=== PATIENT | male | born 1975 | race Caucasian/White ===

== ENCOUNTER 2024-03-11 16:27 | Inpatient (IN) | payer MEDICARE, SELFPAY ==
[2024-03-11] VITALS (36 sets, daily range): BP systolic 99–154; BP diastolic 68–118; PULSE 37–60; BMI 20.1
[2024-03-11 14:56] LABS: Glucose - Point of Care 178 mg/dl (70-99)
[2024-03-11] MEDS: ATROPINE 0.1 MG/ML SYRINGE 1 MG IV ×2 (15:05→17:10)
[2024-03-11] MEDS: AMIDATE 20 MG IV (15:06)
[2024-03-11] MEDS: ANECTINE 150 MG IV (15:06)
[2024-03-11 15:11] LABS: % Basophils 0.4 % (0-2); % Immature Granulocytes 0.2 % (0-0.5); % Lymphocytes 18.9 % (20.5-51.1); % Monocytes 7.8 % (1.7-9.3); % Neutrophils 70.7 % (42.2-75.2); Absolute Eosinophils 0.2 10^3/uL (0-0.7); Absolute Lymphocytes 2.1 10^3/uL (1.2-3.4); Absolute Monocytes 0.9 10^3/uL (0.1-0.6); Absolute Neutrophils 7.8 10^3/uL (1.4-6.5); Hematocrit 34.4 % (39.0-52.0); Hemoglobin 10.9 g/dL (13.0-18.0); Mean Corp Hgb Conc. 31.7 g/dL (33.0-37.0); Mean Corpuscular Hgb 27.1 pg (27.0-31.0); Mean Corpuscular Volume 85.6 fL (80.0-94.0); Mean Platelet Volume 9.7 fL (7.4-10.4); Nucleated Red Blood Cells % 0 % (-); Platelet Count 394 10^3/uL (130-400); Red Blood Cell Count 4.02 10^6/uL (4.70-6.10); Red Cell Dist. Width 14.4 % (11.5-14.5)
--- NOTE | 2024-03-11 15:18 | ED.GENMED ---
History of Present Illness
General
Chief Complaint: Overdose Unintentional
Source: patient and ambulance crew
Exam Limitations: clinical condition and altered mental status
Time Seen by Provider: 03/11/24 15:14
Nursing documentation reviewed up to this point in time: agreed with
History of Present Illness
History of Present Illness:
49-year-old male presents for evaluation he was found passed out at the [place] train station seated in a train seat EMS was called treated with 2 mg of nasal Narcan with minimal improvement of his symptoms presented bradycardic in the 30s agonal
respirations, saturations in the mid 90s
IV access was obtained given 2 mg of IV Narcan he was able to wake up enough to tell me that he was snorting dope, and lives in [place] he went back to sleep, given more Narcan without much relief at that time decision was made to protect his
airway via intubation
Prior to intubation was given atropine due to his heart rate in the 30s, intubated without difficulty by physician accountant assistant with my direct supervision
Past History
Social History
Drug: Narcotics
Review of Systems
Review of Systems
Other source history: ambulance crew
All Other Systems: Not applicable
Phy Exam
Physical Exam
Physical Exam:
Physical Exam
General: 49-year male agonal respirations minimally responsive
Neck: Pupils 2 mm and
Heart: Bradycardic
Lungs: agonal shallow respiration
Abdomen: Soft
Neuro: Minimally responsive, nonverbal does open his eyes to voice and deep stimulation
Skin: no rash
Psychiatric: Unable to assess
Extremities: No cyanosis
Course
Orders/Labs/Results
Orders:
Orders
03/11/24 14:48
Naloxone [Narcan] 2 mg .ROUTE .STK-MED ONE
03/11/24 14:59
Propofol 1,000,000 Mcg/100 ml [Diprivan] 1,000,000 mcg in 100 ml .ROUTE .STK-MED
03/11/24 Dinner
NPO
Allow oral meds: No
Allow clear liquids: No
NPO with Ice Chips: No
03/11/24 15:01
Electrocardiogram (*1) Urgent
Reason for Study: Other
Other Reason for Exam: Potential overdose
Bedside Glucose- Treatment ONCE
Cardiac Monitoring- Treatment ONCE
EKG- Treatment ONCE
IV Insert/Care/Rem.- Treatment PRN
Pulse Ox/spot Check [RESP] Urgent
Quantity: 1
03/11/24 15:03
Acetaminophen Urgent
Alcohol Urgent
Complete Blood Count/With Diff Urgent
Comprehensive Metabolic Panel Urgent
Creatine Phosphokinase Urgent
Comment: ADD ON
Magnesium Urgent
Comment: ADDON
Phosphorus Urgent
Comment: ADDON
Salicylate Urgent
Triglycerides Urgent
Comment: ADDON
03/11/24 15:04
Atropine Sulfate [Atropine 0.1 mg/ml Syringe] 1 mg .ROUTE .STK-MED ONE
03/11/24 15:15
CT Head W/o Iv Contrast Urgent
Comment:
Reason For Exam: confusion
CR Chest Portable - 1 View Urgent
Comment:
Reason For Exam: od
Reason Study Needs to be Portable: Unable to Transport
03/11/24 15:16
GI tube insertion- Treatment ONCE
03/11/24 15:17
Ventilator Initial Settings [RESP] Urgent
03/11/24 15:23
Atropine Sulfate [Atropine 0.1 mg/ml Syringe] 1 mg IV NOW STA
Etomidate [Amidate 20 mg] 20 mg IV NOW STA
Succinylcholine Chloride [Anectine] 150 mg IV NOW STA
03/11/24 15:25
ABG [Arterial Blood Gas] Urgent
%Oxygen/Room Air: 100
03/11/24 15:30
Propofol 1,000,000 Mcg/100 ml [Diprivan] 1,000,000 mcg in 100 ml IV PER PROTOCOL
Indication:: Deep Sedation
Begin Infusion:: Now
Goal:: RASS -3 to -5 or BIS < 60 or ventilator synchrony
Maximum dose in mcg/kg/min:: 50
Continue currently infusion dose and titrate:: Yes
Titration Instructions:: Titrate by 5-10 mcg/kg/min every 5 minutes until RASS -3 to -5 or
Titration Instructions:: BIS < 60 or ventilator synchrony is met.
Titration Instructions:: Administer analgesia bolus dose(s) & titrate analgesia prior to
Titration Instructions:: adjusting sedation.
Taper Instructions:: If RASS is at or below goal for 4 consecutive hours decrease infusion by
Taper Instructions:: 5-10 mcg/kg/min every 2 hours. Do not wean infusion to off if patient is
Taper Instructions:: receiving a continuous NMBA or has received bolus NMBA with the past 3 hrs
Over-sedation Instructions:: If BIS < 40 and synchronous with ventilator decrease infusion by
Over-sedation Instructions:: 5-10 mcg/kg/min every 2 hour until BIS = 40-60.
Notify provider:: immediately if patient exhibits signs/symptoms of propofol-related
Notify provider:: infusion syndrome.
Additional Instructions:: Patient MUST be mechanically ventilated and MUST receive analgesia.
03/11/24 15:31
Add On- LAB Urgent
Tests Added?: cpk
03/11/24 15:50
Drug Screen, Urine [Urine Drug Abuse Screen] Urgent
Date Specimen was Collected: 03/11/24
Time Specimen was Collected: 15:48
Fentanyl, Urine Urgent
03/11/24 16:12
Admit/Transfer Patient As Directed
Co-Sign Provider:
Level of Care: Inpatient admission
Assign to:: ICU
Physician / Group: htay
Diagnosis: Acute VDRF , Overdose, severe BEDSPRING ASSEMBLER depression and bradycardia
Reason for Hospitalization: Overdose with severe BEDSPRING ASSEMBLER depression and bradycardia
Acute VDRF
Expected length of stay greater than two midnights?: Yes
ELOS- Estimated Length of Stay in days: 3
I certify the patient meets the requirements for IP care: Yes
03/11/24 16:15
Code Status As Directed
Resuscitation Status: Full Code
03/11/24 17:21
0.9% Sodium Chloride 1000 ml [Nss] 1,000 ml IV 100 mls/hr
Bisacodyl [Dulcolax] 10 mg RECTAL [id number] PRN
Dextrose 50%-Water [Dextrose 50% Syringe] 12.5 grams IV [id number] PRN
Docusate W/Senna [Senokot-S] 1 tablet PO BIDPRN PRN
Glucagon [GlucaGen] 1 mg IM PRN PRN
Polyethylene Glycol Powder [Miralax] 17 grams PO DAILYPRN PRN
03/11/24 17:21
Bellman Driver Consult Routine
Consulting Provider: Juan Diego Shaikh
Was physician already notified: Yes
Reason for consult: severe BEDSPRING ASSEMBLER depression and bradycardia , Acute VDRF
Activity As Directed
Activity Level: With Assistance
Bedside Glucose Monitoring As Directed
Frequency: AC&HS
Additional Instructions:: Change to q6h if pt on TPN, tube feeding or not eating
Small bore feeding tube placement [Place Small Bore Feeding Tube-ICU only] Routine
Vital Signs As Directed
Frequency: Per unit guidelines
DX Deep Vein Thrombosis Video Routine
03/11/24 18:00
Enoxaparin Sodium [Lovenox] 40 mg SC QPM
03/12/24 06:00
Basic Metabolic Panel IN AM
Complete Blood Count/No Diff IN AM
Glycohemoglobin (HgbA1c) IN AM
03/12/24 08:00
Polyethylene Glycol Powder [Miralax] 17 grams TUBE DAILY
03/14/24 06:00
Triglycerides Q3D
Comment: every 72 hours while patient is on propofol
03/17/24 06:00
Triglycerides Q3D
Comment: every 72 hours while patient is on propofol
03/20/24 06:00
Triglycerides Q3D
Comment: every 72 hours while patient is on propofol
Abnormal Lab Results
03/11/24 03/11/24 03/11/24
14:54 15:03 15:25
WBC 11.0 H 10^3/uL
(4.8-10.8)
RBC 4.02 L 10^6/uL
(4.70-6.10)
Hgb 10.9 L g/dL
(13.0-18.0)
Hct 34.4 L %
(39.0-52.0)
MCHC 31.7 L g/dL
(33.0-37.0)
Absolute Neuts (auto) 7.8 H 10^3/uL
(1.4-6.5)
Absolute Monos (auto) 0.9 H 10^3/uL
(0.1-0.6)
Lymphocytes % 18.9 L %
(20.5-51.1)
pH 7.53 H
(7.35-7.45)
pCO2 29 L mmHg
(35-48)
pO2 213 H mmHg
(83-108)
ABG O2 Sat (Measured) 100.0 H %
(94-98)
Potassium 5.6 H mmol/L
(3.5-5.1)
Carbon Dioxide 21 L mmol/L
(22-30)
Glucose 172 H mg/dl
(70-99)
Salicylates < 1.0 L mg/dl
(2.0-20.0)
Urine Opiates Screen
Urine Fentanyl Screen
Acetaminophen < 10 L ug/ml
(10-30)
Ur Barbiturates Screen
U Benzodiazepines Scrn
Urine Cocaine Screen
U Marijuana (THC) Screen
POC Glucose 178 H mg/dl
(70-99)
03/11/24
15:50
WBC
RBC
Hgb
Hct
MCHC
Absolute Neuts (auto)
Absolute Monos (auto)
Lymphocytes %
pH
pCO2
pO2
ABG O2 Sat (Measured)
Potassium
Carbon Dioxide
Glucose
Salicylates
Urine Opiates Screen Positive H
(Negative)
Urine Fentanyl Screen Positive H
(Negative)
Acetaminophen
Ur Barbiturates Screen Positive H
(Negative)
U Benzodiazepines Scrn Positive H
(Negative)
Urine Cocaine Screen Positive H
(Negative)
U Marijuana (THC) Screen Positive H
(Negative)
POC Glucose
03/11/24 15:03
03/11/24 15:03
Vital Signs
Initial and Last Documented VS:
Initial Vital Signs
Pulse Resp BP Pulse Ox
68 28 129/68 100
03/11/24 14:55 03/11/24 14:55 03/11/24 14:55 03/11/24 14:55
Last Documented Vital Signs
Temp Pulse Resp BP Pulse Ox
97.6 F 51 12 148/105 100
03/11/24 18:08 03/11/24 17:39 03/11/24 17:39 03/11/24 17:39 03/11/24 17:57
Procedures
Intubations
Procedure completed by: shazia
Method of Intubation: glidescope
Tube size (cm): 7.5
Placement confirmed by: auscutation, CXR and capnography
Breath sounds after intubation: equal
Intubation complications: no complications
MDM/Problems Addressed
Differential Diagnosis Includes:
Narcotic overdose, alcohol sedative hypnotic CVA aspiration other
MDM/Problems Addressed:
Mental status change
*Radiology
Radiology exam reviewed: preliminary read by ED provider and radiology read reviewed
*Pulse Oximetry
Patient hypoxic: no
*EKG
Interpreted by ED Provider?: Yes
Interpretation: abnormal
Comparison EKG: no comparison EKG present
Heart Rate: 33
Rate: normal
Rhythm: sinus
Ischemia: no ischemia
*Research Chief Engineer Interpretation
Rate: normal
Interpretation: normal
Heart Rate: 34
Rhythm: sinus
*Critical Care Note
Total Time (30-74mins, 75-104mins- exclusive of procedures): 35
Patient Management
Social determinants of health affecting care: Substance abuse
Discussion with other providers: Hospitalist
Update Note
Update Note:
Update decision to intubate the patient
Rapid sequence premedicated with atropine first-pass success
CRITICAL CARE STATEMENT: A total of 32 minutes of critical care time was provided for this patient. This includes management of unstable vital signs, evaluation of the patient at bedside, reviewing the patient's pertinent medical records discussion
with EMS providers and patient's family in addition to discussion with consultants, review of old EKGs and review of pertinent medical records. This time with separate from time utilized to perform the aforementioned documented procedures
ED Attending Note
-
Portions of this chart may have been created with voice recognition software.� Occasional wrong word or��sound alike� substitutions may have occurred due to the inherent limitations of voice recognition software.
Discharge Plan
Departure
Patient Disposition: Admit
Date of Disposition: 03/11/24
Time of Disposition: 15:47
Admit to: ICU
Admit to doctor: Shiney
Presentation/result/management discussed w/ accepting MD/DO: Hospitalist
Condition: Serious
Covid-19: Not Applicable
Discharge Problem:
Overdose, VENTILATOR DEPENDENT RESPIRATOR FAILURE
Interventions
Interventions:
*Risk Screen - Suicide Last Done: 03/11/24 16:00
*General Assessment Last Done: 03/11/24 15:14
*Neglect/Abuse Screening Last Done: 03/11/24 16:00
ED- Fall Risk Assessment Last Done: 03/11/24 15:14
*ED COVID-19 Vaccine History Last Done: 03/11/24 15:12
*Nursing Disposition Last Done: 03/11/24 17:43
ED- Cardiac Assessment Last Done: 03/11/24 15:21
ED- Neurological Assessment Last Done: 03/11/24 15:21
ED-Psychological Assessment Last Done: 03/11/24 15:21
ED- Pulmonary Assessment Last Done: 03/11/24 15:10
Discharge Date and Time
Discharge Date/Time: 03/11/24 17:44
[2024-03-11] MEDS: DIPRIVAN 100 IV ×2 (15:20→20:15)
[2024-03-11 15:28] LABS: ALT (SGPT) 35 U/L (0-50); AST (SGOT) 28 U/L (17-59); Acetaminophen < 10 ug/ml (10-30); Albumin 4.5 g/dl (3.5-5.0); Alcohol None Detected; Alkaline Phosphatase 55 U/L (38-126); Blood Urea Nitrogen 13 mg/dl (9-20); Calcium 9.5 mg/dl (8.4-10.2); Carbon Dioxide 21 mmol/L (22-30); Chloride 107 mmol/L (98-107); Glucose 172 mg/dl (70-99); Potassium 5.6 mmol/L (3.5-5.1); Salicylate < 1.0 mg/dl (2.0-20.0); Sodium 138 mmol/L (135-145); Total Bilirubin 0.4 mg/dl (0.2-1.3); Total Protein 6.9 g/dl (6.3-8.2); eGFR > 60.00
--- NOTE | 2024-03-11 15:32 | PHANOTE ---
Addendum entered by Denia Lowry 03/11/24 15:46:
called contact pharmacy attached to patient pharmacy records concern patient have have life a facility since I only seen that pharmacy attach to long term orders. pharmacy gave list of medication but could go into details since his was discharge
from [facility], unsure if patient still goes there short or [facility].
Original Note:
med rec note- patient unable to answer question now, no family with him, no ecw but recent pharmacy fills only filled on 02/09/24-02/08/24 for short days supply 10 day for most of them.
--- NOTE | 2024-03-11 15:51 | HPS.HSE ---
Addendum entered and electronically signed by Casey Pedroza MD 03/11/24 17:15:
Consulted [facility] Card Dr Fields for intermittent SB despite intubation and Atropine
Original Note:
Family Physician
-
Family Physician: NOT KNOW UNKNOWN - PT DOES
Chief Complaint
-
Intubated when I saw the patient
History of Present Illness
I could not get any information from the patient is intubated
Information gathered by chart review and speaking with the ER staff.
HPI
49M OP Meds suggested PMHX include Bipolar disorder, HLD , GERD, BPH BiB EMS
- found [place] out [place]
- EMS arrived to the [facility]; Given 2 mg of nasal Narcan with minimal improvement of his symptoms
- EMS noted bradycardic in the 30s with agonal respirations, POx mid 90s
- At ER: repeat 2 mg of IV Narcan- able to wake up enough to tell ER attd that he was snorting dope, and lives in [place] he went back to sleep, given more Narcan without much relief at that time decision was made to protect his airway via
intubation by ER atd
Medical History
Past Medical History
Past Medical History: Reports GERD, Hypercholesterolemia, Psychiatric (Bipolar ) and Other (Substance abuse - snorting )
Additional Past Medical History:
Sz disorder ?
Past Surgical History: Reports Other (Intubated Not available )
Social History
Drug: Other (active substance abuse )
Family History
Family History: Not pertinent
Allergies / Home Medications
Allergies reflects when Allergies were last updated in [facility].
Home Medications with original date entered in [facility]
Allergy/Medication List:
Allergies
Allergy/AdvReac Type Severity Reaction Status Date / Time
No Allergy Information Allergy Unverified 03/11/24 15:12
Available
Home Medications
atorvastatin 10 mg tablet (Lipitor) 10 mg PO QPM 03/11/24
esomeprazole magnesium 40 mg capsule,delayed release (Nexium) 40 mg PO BID 03/11/24
levetiracetam 500 mg tablet (Keppra) 500 mg PO BID 03/11/24
lithium carbonate 300 mg tablet,extended release 300 mg PO DAILY 03/11/24
lithium carbonate 600 mg capsule 600 mg PO HS 03/11/24
quetiapine 200 mg tablet (Seroquel) 200 mg PO HS 03/11/24
quetiapine 25 mg tablet (Seroquel) 75 mg PO DAILY 03/11/24
sucralfate 1 gram tablet (Carafate) 1 g PO ACHS 03/11/24
tamsulosin 0.4 mg capsule (Flomax) 0.4 mg PO DAILY 03/11/24
Review of Systems
-
Unable to obtain full review of systems at this time due to: Patient Intubation
Physical Exam
Vital Signs
Vital Signs
Pulse Resp BP Pulse Ox
57 12 105/92 100
03/11/24 15:45 03/11/24 15:45 03/11/24 15:00 03/11/24 15:45
Physical Exam
General: Intubated
HEENT: NormoCephalic and Anicteric
Respiratory: Other (symmetric AE )
Cardiac: S1/S2 and Bradycardia
Breast: Deferred by me
GI: Soft, Non Tender, Non Distended and Normal Bowel Sounds
Rectal: Deferred by Provider
Genito-urinary: Deferred by me
Musculoskeletal: No Edema
Skin: Warm
Neuro: Other (intubated )
Laboratory Results
-
03/11/24 15:03
03/11/24 15:03
Laboratory Results
Total Bilirubin 0.4 mg/dl (0.2-1.3) 03/11/24 15:03
AST 28 U/L (17-59) 03/11/24 15:03
ALT 35 U/L (0-50) 03/11/24 15:03
Alkaline Phosphatase 55 U/L (38-126) 03/11/24 15:03
Data Reviewed
-
Diagnostic Radiology: Image Personally Visualized and interpreted
Lab Data: Labs Reviewed by me
Impression/Plan
-
Vital Signs
Pulse Resp BP Pulse Ox
57 12 105/92 100
03/11/24 15:45 03/11/24 15:45 03/11/24 15:00 03/11/24 15:45
Laboratory Tests
03/11/24 03/11/24
14:54 15:03
WBC 11.0 H
Hgb 10.9 L
Potassium 5.6 H
Carbon Dioxide 21 L
Creatinine 1.2
eGFR > 60.00
Creatine Kinase Pending
Salicylates < 1.0 L
Acetaminophen < 10 L
Alcohol, Quantitative None detected
POC Glucose 178 H
NO PRIOR HOSPIALIST admission:
ASSESSMENT & PLAN
Pending Rx reconciliation
Overdose with severe TIE CARRIER depression and bradycardia
Unable to sustain wakefullness despite 3 x2 g narcan to protect AW - Intubated at ER
Aute VDRF and sedated under Diprivan gtt
Sinus bardycardia - improved to 50s from 30s - s/p Atropine 1mg
Mildly hypotensive
- NEG ETOH, Unremarkable salicylates and Acetaminophen
- Pending UDS
- Pending ABG
- cont. Vent and supportive care
- Small bore NGT
- supportive care; IVF
- Hypoglycemic protocol
- IV PPI BID
- Assistant Product Manager consult
HX OP Meds suggested PMHX include Bipolar disorder, HLD , GERD, BPH
- pending Rx reconciliation
DVT Px: LMWH
Code: Full code
ICU
Total Critical Care Time___70__ minutes.
I was immediately available to the patient and staff. I personally examined, reviewed labs, diagnostic images/reports, interpretations, treatment plans, discussed patient care with other providers and family or caregivers (if patient is unable to
make decisions), entered orders as appropriate and documented the medical record.
[2024-03-11 15:59] LABS: Creatine Phosphokinase 59 U/L (55-170); Triglycerides 88 mg/dl (10-149)
[2024-03-11 16:11] LABS: Amphetamines Negative (Negative); Barbiturates Positive (Negative); Benzodiazepines Positive (Negative); Buprenorphine Negative (Negative); Cocaine Positive (Negative); Marijuana Positive (Negative); Methadone Negative (Negative); Methamphetamines Negative (Negative); Opiates Positive (Negative); Phencyclidine Negative (Negative)
[2024-03-11 16:12] LABS: Tricyclic Antidepressants Negative (Negative)
[2024-03-11 16:38] LABS: B.E. 2.1 mmol/L; HCO3 24.2 mmol/L (21-28); PCO2 29 mmHg (35-48); PO2 213 mmHg (83-108); pH 7.53 (7.35-7.45)
[2024-03-11 16:46] LABS: Fentanyl, Urine Positive (Negative)
[2024-03-11 18:06] LABS: Magnesium 2.2 mg/dl (1.6-2.3); Phosphorus 4.4 mg/dl (2.5-4.5)
[2024-03-11] MEDS: SUBLIMAZE 50 MCG IV ×4 (18:41→23:46)
[2024-03-11] MEDS: NSS 1000 IV (19:08)
[2024-03-11] MEDS: LOVENOX 40 MG SC (19:09)
--- NOTE | 2024-03-11 19:18 | PTCARENOTE ---
Received pt from ER into ICU rm 3370 @ 1730. Pt sedated/intubated on propofol gtt- see flow sheet to keep RASS (-3)-(-5.) +response to painful stimuli. Pupils 2mm/sluggish/perrla. SR on monitor. SpO2 100% on vent settings AC12/500/.40/+5. #7.5 ETT,
21 @ lip on R side. Suctioned for small amt of thick/white secretions. Auscultated coarse breath sounds throughout. OG tube in palce clamped. Previously straight cath'd in ER; BS/SC prn. #18 R wrist and #20 L wrist patent, dressing c/d/i.
Unable to obtain more peripheral access/venous draw. VAT aware and to bedside to place midline. Report given to nightshift RN.
[2024-03-11] MEDS: DOPamine 400 MG 250 IV (19:30)
[2024-03-11 19:56] LABS: INR 1.21; PT 15.1 Sec (11.4-14.6)
[2024-03-11 19:57] LABS: APTT 37.1 Sec (23.4-35.0)
[2024-03-11 20:02] LABS: Blood Urea Nitrogen 11 mg/dl (9-20); Calcium 9.2 mg/dl (8.4-10.2); Carbon Dioxide 21 mmol/L (22-30); Chloride 112 mmol/L (98-107); Estimated Creatinine Clearance 60 ml/min; Glucose 110 mg/dl (70-99); Potassium 3.7 mmol/L (3.5-5.1); Sodium 143 mmol/L (135-145); eGFR > 60.00
[2024-03-11] MEDS: SUBLIMAZE 100 IV (20:55)
--- NOTE | 2024-03-11 21:00 | PTCARENOTE ---
Received pt at 1900, intubated and sedated on propofol. Pt. agitated at times, CPOT >4, restless- PRN fentanyl given. Fentanyl gtt started as propofol max'd and pt. remained agitated. + gag/corneals, pupils 3mm/sluggish. Responsive to pain, no
commands followed. TSAI, purposeful movements. B/L wrist restraints in place. SB on tele, HR 37-42. TRASH MAN notified. Dopamine gtt started to maintain HR >40- see worklist. BP stable 100s/70s. + pulses. Ext cool. Temp 98. No edema. #7.5 ETT 22 center
lip. Tolerating A/C 12/500/+5/40%. Spo2 98-100%. Lungs coarse. Suctioned ETT for bloody tinged sputum. Mouth care provided. OG tube to LIWS, flushed as ordered. Hypoactive bowel sounds. Has not voided since ED. Bladder scan >690ml. TRASH MAN placed mario
order. 14F temp sensing mario inserted per protocol without issue. 750 ml clear yellow urine out. See I&O. R midline with dopamine gtt, R #18 with NSS @ 100ml/hr, prop and fentanyl gtts. Turning q2.
--- NOTE | 2024-03-11 21:29 | PTCARENOTE ---
Spoke with mother, Siena, on the phone (can be reached at cell number [phone]; number listed on chart is land line number no longer in use). Updated on patients condition. She OK'd pt. son (Markel Salguero, cell number [phone]) to be updated
on care also. Spoke with him and informed of condition.
[2024-03-11] MEDS: ATIVAN 2 MG IV (22:33)
--- NOTE | 2024-03-11 22:34 | PTCARENOTE ---
Pt awake, eyes open, tracking, following commands. Fighting ventilator and restraints. PRN ativan given with no effect. SPRINKLING SYSTEM INSTALLER at bedside. 5mg Versed ordered and given.
[2024-03-11] MEDS: VERSED 5 MG IV (22:39)
--- NOTE | 2024-03-11 23:54 | PTCARENOTE ---
Pt. reassessed. Very agitated with any form of care, fentanyl bolus given and gtt increased.
[2024-03-12] VITALS (39 sets, daily range): BP systolic 84–161; BP diastolic 58–111; PULSE 38–60; BMI 19.9
[2024-03-12] MEDS: SUBLIMAZE 50 MCG IV ×4 (00:18→06:44)
[2024-03-12] MEDS: DIPRIVAN 100 IV ×2 (00:21→05:45)
[2024-03-12] MEDS: VERSED 5 MG IV ×4 (00:33→07:16)
--- NOTE | 2024-03-12 01:48 | PTCARENOTE ---
Spiked temp 100.9. METAL ROASTER notified- cultures and lactic ordered and drawn. Ofirmev ordered.
[2024-03-12] MEDS: OFIRMEV 100 IV (01:58)
[2024-03-12] MEDS: ZOSYN 50 IV ×4 (01:59→20:42)
[2024-03-12 02:10] LABS: Lactic Acid 0.8 mmol/L (0.7-2.0)
[2024-03-12] MEDS: ATIVAN 2 MG IV (04:07)
[2024-03-12 04:20] LABS: Hematocrit 30.6 % (39.0-52.0); Hemoglobin 9.8 g/dL (13.0-18.0); Mean Corpuscular Hgb 27.1 pg (27.0-31.0); Mean Corpuscular Volume 84.8 fL (80.0-94.0); Mean Platelet Volume 9.6 fL (7.4-10.4); Platelet Count 359 10^3/uL (130-400); Red Blood Cell Count 3.61 10^6/uL (4.70-6.10); Red Cell Dist. Width 14.5 % (11.5-14.5); White Blood Cell Count 12.2 10^3/uL (4.8-10.8)
[2024-03-12 04:36] LABS: Blood Urea Nitrogen 10 mg/dl (9-20); Calcium 8.7 mg/dl (8.4-10.2); Carbon Dioxide 19 mmol/L (22-30); Chloride 112 mmol/L (98-107); Estimated Creatinine Clearance 66 ml/min; Glucose 113 mg/dl (70-99); Magnesium 1.7 mg/dl (1.6-2.3); Potassium 3.8 mmol/L (3.5-5.1); Sodium 143 mmol/L (135-145); eGFR > 60.00
[2024-03-12 04:47] LABS: B.E. -3.1 mmol/L; HCO3 20.9 mmol/L (21-28); O2 Saturation % 99.9 % (94-98); PCO2 33 mmHg (35-48); PO2 142 mmHg (83-108); pH 7.41 (7.35-7.45)
[2024-03-12] MEDS: SUBLIMAZE 100 IV (04:57)
[2024-03-12] MEDS: NSS 1000 IV (04:58)
[2024-03-12] MEDS: MAGNESIUM SULFATE 102 GRAMS IV (06:28)
--- NOTE | 2024-03-12 07:21 | PTCARENOTE ---
Pt. required extra doses versed and ativan, max'd on prop, fent titrated up overnight. Remains restless, agitated at times. INSULATION CUTTER AND FORMER aware. Many attempts to calm pt and redirect. Remains off dopamine gtt- HR 50s-60s. BP stable.
--- NOTE | 2024-03-12 07:58 | CON.INTV ---
Consultation
Consultation Request
Date/Time Consultation Requested: 03/12/2024-7 AM
Date/Time Consultation Performed: 03/12/2024-7:30 AM
Requesting Provider: Hospitalist
Performing Provider: Dr. Martinez
Reason for Consultation: Ventilator/critical care management
Medical History
-
Chief Complaint: Unresponsive
History of Present Illness:
49-year-old male with a history of bipolar disorder, polysubstance abuse [place] not responding to nasal Narcan requiring intubation mechanical ventilation-cut pressman consulted for ventilator/critical care
management 03/12/2024. Patient is much more alert on the ventilator, answering questions, moderate amount secretions-yellow and thick according to [employer] ADMINISTRATOR, no complaints of chest pain, abdominal pain or weakness, however, review of systems difficult as
patient is intubated and mechanically ventilated.
Past Medical History
Past Medical History: None (Polysubstance abuse. GERD. Hyperlipidemia. Bipolar.)
Social History
Tobacco: Other (Unknown)
Alcohol: None (X 9 years)
Drug: Narcotics and Other (Barbiturates and benzodiazepines)
Family History
Family History: Unable to Obtain
Allergies / Home Medications
Allergies
Allergy/AdvReac Type Severity Reaction Status Date / Time
No Allergy Information Allergy Unverified 03/11/24 15:12
Available
Home Medications
�Medication �Instructions �Recorded �Confirmed �Last Taken �Type
atorvastatin 10 mg tablet (Lipitor) 10 mg PO QPM 03/11/24 03/11/24 Unknown History
esomeprazole magnesium 40 mg 40 mg PO BID 03/11/24 Unknown History
capsule,delayed release (Nexium)
levetiracetam 500 mg tablet 500 mg PO BID 03/11/24 Unknown History
(Keppra)
lithium carbonate 300 mg 300 mg PO DAILY 03/11/24 Unknown History
tablet,extended release
lithium carbonate 600 mg capsule 600 mg PO HS 03/11/24 Unknown History
quetiapine 200 mg tablet (Seroquel) 200 mg PO HS 03/11/24 Unknown History
quetiapine 25 mg tablet (Seroquel) 75 mg PO DAILY 03/11/24 Unknown History
sucralfate 1 gram tablet (Carafate) 1 g PO ACHS 03/11/24 Unknown History
tamsulosin 0.4 mg capsule (Flomax) 0.4 mg PO DAILY 03/11/24 Unknown History
Review of Systems
-
Unable to Obtain full review of systems at this time due to: Patient Intubation
Vitals / Labs / Diagnostic Testing
Vital Signs
Temp Pulse Resp BP Pulse Ox
101.2 F H 71 20 124/81 100
03/12/24 02:40 03/12/24 07:15 03/12/24 07:15 03/12/24 06:31 03/12/24 07:15
Lab Data
03/12/24 03:53
03/12/24 03:53
Laboratory Results
03/11/24 03/11/24 03/12/24
15:25 19:27 04:37
PT 15.1 H
INR 1.21
APTT 37.1 H
pH 7.53 H 7.41
pCO2 29 L 33 L
pO2 213 H 142 H
HCO3 24.2 20.9 L
O2 Delivery Level
Diagnostic Testing:
Physical Exam
-
Exam:
Well-nourished and well-developed in no apparent distress
HEENT-atraumatic, normocephalic, oral tracheal intubation
Neck-supple, no JVD, no bruit
Heart-regular rate and rhythm-no murmurs, rubs or gallops
Chest-clear to auscultation, no wheezes, crackles
Back-no tenderness
Abdomen-soft, nontender, nondistended, no hepatosplenomegaly
Extremities-no cyanosis, clubbing, edema and good peripheral pulses
Integument-intact, no rashes, lesions or ecchymosis
Neurology-alert and oriented, nonfocal motor and sensory exam
Assessment
-
49-year-old male with a history of bipolar disorder, polysubstance abuse [place] responding to nasal Narcan requiring intubation mechanical ventilation-cut pressman consulted for ventilator/critical care
management 03/12/2024.
Opiate overdose with severe REVIEW RN depression
UDS positive opiates, fentanyl, barbiturates, benzodiazepines, cocaine, and marijuana
Respiratory failure due to REVIEW RN depression requiring intubation and mechanical ventilation
Intubated 03/11/2024
Extubated 03/12/2024
Sinus bradycardia
Hypotension
Leukocytosis
Aspiration pneumonia suspected-thick yellow mucus from ET tube
Qhslbh-[id number]-lqqeylmkxa 9.8
Metabolic acidosis
Mild hyperglycemia
Conditions present prior to admission:
Polysubstance abuse.
GERD.
Hyperlipidemia.
Bipolar.
Plan
Patient will be admitted to medical intensive care
Patient intubated mechanically ventilated
Spontaneous breathing trial-Hope to extubate-patient starting to wake up
Follow oxygen
Aspiration suspected
VAP prevention protocol
Check cultures
Check sputum culture
Empiric antibiotics
Follow radiographically
Trend WBCs and temperature
Etiology of drug widoxjuj-bxszvjeuggteu-llvchfh, fentanyl, barbiturates, benzodiazepines, cocaine and marijuana
Monitor for arrhythmias-monitor QTC, QRS, etc.
CT head summarized below
Neurochecks
For opiate overdose
Monitor for respiratory depression, contricted pupils,
Dextromethorphan - serotonin txicity
Fentanyl - amnestic, chest wall rigidity
Hydrocodone - often combined with acetaminophen
Loperamide - QRS and QT prolongation, wide complex tachy
Meperidine - seizure, serotonin toxicity
Methadone - very long acting, QT prolongation, Torsades
Oxycodone - often combined with acetaminophen, QT prolongation
Tramadol - seizure, serotonin toxicity
Naloxone- consider drip
Often Xylazine coadministered with Fentanyl
causes coma, apnea, bradycardia and hypotention, skin ulcerations
withdrawal irratibility, craving, anxiety, dysphoria, tachy, aches, htn
check levels
For potential benzodiazepine overdose
Monitor for sedation, airway protection, intubate if necessary, supportive care
Consider propylene glycol toxicity if parenteral diazepam or lorazepam was used
Flumazenil could be considered
With history of marijuana use there is a potential for 'synthetic marijuana'-also called 'K2' or 'Spice'
Does not show up on UDS
Monitor for agitation, seizures, and psychosis
Treat with benzodiazepines such as Ativan
Intravenous fluids
Psychiatric evaluation
DVT prophylaxis
GI prophylaxis if remains on ventilator with hypotension
Aspiration precautions
Early nutrition
Early mobilization
If able to be extubated and hemodynamically stable then transfer out of ICU-call pulmonary if respiratory issues arise
Critical care statement: A total of 55 minutes of critical care time was provided for this patient today. This includes management of unstable vital signs, evaluation of the patient at bedside, reviewing the patient's pertinent medical records
including radiographs, pressor management, ventilator management, microbiology, laboratory evaluations, and discussion with primary team and critical care nursing.
Diagnostic data:
Chest x-ray 03/11/2024-mild elevation left hemidiaphragm
CT head 03/11/2024-no evidence for intracranial disease
Data Reviewed
-
EKG: Report reviewed by me
Radiology: Report reviewed by me
CT Scan: Report reviewed by me
Labs: Labs reviewed by me
Critical Care Time (in minutes): 55
--- NOTE | 2024-03-12 08:45 | RESPNOTE ---
pt extubated to room air after successful SBT per Dr. Martinez.
--- NOTE | 2024-03-12 09:00 | PTCARENOTE ---
Received pt @ change of shift. Initiated SAT @ 0800; prop/fent gtts off- see flow sheet. RT to bedside and initiated CPAP wean @ 0800 8/.40/+5. Pt. very restless but tolerating wean; RT further changed settings to CPAP 5/.40/+5. [address] Persaud; verified no ABG required prior to extubation. Further orders received to extubate- RT extubated pt. @ 0845 to RA. SpO2 99% on RA, no s/s of resp distress. Pt. mentation intact; cooperative/appropriate. VSS post extubation.
Instructed on how to report care concerns and call jiménez w in reach. Bed alarm active.
[2024-03-12] MEDS: NSS (PRESERVATIVE FREE) 10 ML IV (09:08)
[2024-03-12] MEDS: PROTONIX IV 40 MG IV (09:09)
--- NOTE | 2024-03-12 10:07 | W.PN.HOSP.TC ---
Today's Communication/Plan
-
Extubate and monitor clinically
Continue with IV Zosyn and follow cultures
Case management consult for drug rehab placement
Assessment / Plan
Assessment / Plan
#Fever
-Does have extensive opiate history, presumed IVDU status
-After arrival he had 2 fevers near 101 �F, no obvious source of infection
-Chest x-ray was without any signs of infection, no urinalysis on arrival
-Does have a leukocytosis with WBC near 11 to 12 x 2
-Blood cultures were taken in the ED, started on IV Zosyn empirically
Plan
-Continue with IV Zosyn for now
-Trend CBC and temperature curve
-Follow blood culture results
#Opiate overdose with severe NUCLEAR MEDICINE SPECIALIST depression and bradycardia
#Acute toxic encephalopathy
-Unable to sustain wakefullness despite 3 x2 g narcan to protect Airway - Intubated at ER
-Urine drug screen showed multiple opiates including fentanyl, barbiturates, benzodiazepine
-Has quickly improved, heart rate is now WNL, he is much more awake and alert
-Continue with supportive management, IVF today
-Would benefit from drug rehab at discharge
-Will monitor for signs of withdrawal, start MSAS
#Acute VDRF
-Secondary to inability to protect airway; no acute pulmonary processes
-Upon arrival was sedated under Diprivan gtt
-Successful SAT/SBT this morning
-Planning of vent liberation today
#Sinus bardycardia
-Resolved, secondary to opiate and NUCLEAR MEDICINE SPECIALIST depression
#Mildly hypotensive
-Resolved
#H/O bipolar disorder, BPH, HLD, GERD
-Per documented outpatient medication regimen
-Was unable to obtain med rec due to mental status and intubated status
-Will obtain his full medication records from him after he is extubated today
DVT prophylaxis: Lovenox
Diet: N.p.o. for now, plan regular feeds when extubated
CODE STATUS: Full code
Anticipated Discharge: 24 - 48 hours
Subjective/Interval History
-
Date of Service: March 12, 2024
Seen and examined at the bedside. No acute events overnight. AFVSS this morning off of pressors/inotropes, pending vent liberation
He was awake and alert, responding appropriately to questions while off of sedation. Planning to extubate this morning.
History was otherwise limited by his intubated status, inability to communicate effectively
Objective Data
-
Labs:
Laboratory Results
03/12/24 03/12/24
03:53 04:37
WBC 12.2 H
Hgb 9.8 L
Hct 30.6 L
Plt Count 359
HCO3 20.9 L
Sodium 143
Potassium 3.8
Chloride 112 H
Carbon Dioxide 19 L
BUN 10
Creatinine 1.0
Glucose 113 H
Calcium 8.7
Vital Signs:
Vital Signs
Temp Pulse Resp BP Pulse Ox
101.2 F H 82 16 124/81 100
03/12/24 02:40 03/12/24 08:31 03/12/24 08:31 03/12/24 06:31 03/12/24 08:31
I&O
03/11/24 03/12/24 03/13/24
06:59 06:59 06:59
Intake Total 1632.6 / 1761.9 379.3 / 379.3
Output Total 2430 / 2530 300 / 300
Balance -797.4 / -768.1 79.3 / 79.3
Review of Systems
-
Unable to obtain full review of systems at this time due to: Patient Intubation
Physical Exam
-
General: No Apparent Distress, Comfortable and Intubated
HEENT: Normocephalic, Atraumatic and Moist Mucous Membranes
Respiratory: Clear to Auscultation and Non Labored Respirations; Negative Wheezes, Rales, Rhonchi or Accessory Resp Muscle Use
Cardiac: Regular Rhythm and S1/S2; Negative Murmur, Rub, JVD or Gallop
GI: Soft, Nontender, Nondistended and Normal Bowel Sounds
Musculoskeletal: No Clubbing, No Cyanosis and No Edema
Skin: Warm and Dry; Negative Rash or Jaundice
Neuro: AO x 3, Nonfocal/Grossly Intact and Central Nerve's Intact
Hematologic / Lymphatic: No Lymphadenopathy
Data Reviewed
-
Labs: Labs Reviewed by me
[2024-03-12 11:28] LABS: Glycohemoglobin (HgbA1c) 5.7 % (4.0-5.6)
--- NOTE | 2024-03-12 12:00 | CON.INTV ---
Documented by User: Martha Melendrez MD, Resident 03/12/24 12:32
Consultation
Consultation Request
Date/Time Consultation Requested: 03/11/2024 at 17:21
Date/Time Consultation Performed: 03/11/2024 at 17:21
Requesting Provider: Casey MENDEZ
Reason for Consultation: severe EVAPORATOR HELPER depression and bradycardia , Acute VDRF
Medical History
-
Chief Complaint: Overdose-unintentional
History of Present Illness:
Patient is a 49-year-old male who presented to the emergency department [place] [facility] [place] [facility] At the time he was found he was seen seated in a train seat unconscious. He has a past medical history of GERD,
hypercholesterolemia, bipolar unspecified, and drug abuse through insufflation. EMS treated the patient with 2 mg of nasal Narcan with minimal improvement and the patient had bradycardia with a heart rate in the 30s. He was seen with agonal
respirations and oxygen saturation in the mid 90s. When the patient arrives to the emergency department they managed to get IV access and gave the patient 2 mg of IV Narcan and the patient was able to wake up enough to say that he was snorting
'dope' and lives in [place]. Shortly after giving that information he went back to sleep. He was intubated in the emergency department in order to protect his airway. Prior to intubation the patient was given atropine due to a heart rate in the
30s. Labs in the emergency department showed an elevated white blood cell count at 11. Toxicology screen which was positive for fentanyl, opiates, barbiturates, benzodiazepines, cocaine, and marijuana. Head CT showed no intracranial disease.
Patient was subsequently admitted to the ICU for management of unintentional drug overdose.
Past Medical History
Past Medical History: GERD, Hypercholesterolemia and Other (Substance abuse)
Social History
Drug: Marijuana, Cocaine and Narcotics
Allergies / Home Medications
Allergies
Allergy/AdvReac Type Severity Reaction Status Date / Time
No Allergy Information Allergy Unverified 03/11/24 15:12
Available
Home Medications
�Medication �Instructions �Recorded �Confirmed �Last Taken �Type
atorvastatin 10 mg tablet (Lipitor) 10 mg PO QPM 03/11/24 03/11/24 Unknown History
esomeprazole magnesium 40 mg 40 mg PO BID 03/11/24 Unknown History
capsule,delayed release (Nexium)
levetiracetam 500 mg tablet 500 mg PO BID 03/11/24 Unknown History
(Keppra)
lithium carbonate 300 mg 300 mg PO DAILY 03/11/24 Unknown History
tablet,extended release
lithium carbonate 600 mg capsule 600 mg PO HS 03/11/24 Unknown History
quetiapine 200 mg tablet (Seroquel) 200 mg PO HS 03/11/24 Unknown History
quetiapine 25 mg tablet (Seroquel) 75 mg PO DAILY 03/11/24 Unknown History
sucralfate 1 gram tablet (Carafate) 1 g PO ACHS 03/11/24 Unknown History
tamsulosin 0.4 mg capsule (Flomax) 0.4 mg PO DAILY 03/11/24 Unknown History
Review of Systems
-
Unable to Obtain full review of systems at this time due to: Other (Patient drowsiness following extubation)
History Source: Patient
Vitals / Labs / Diagnostic Testing
Vital Signs
Temp Pulse Resp BP Pulse Ox
101.2 F H 82 16 124/81 100
03/12/24 02:40 03/12/24 08:31 03/12/24 08:31 03/12/24 06:31 03/12/24 08:31
Lab Data
03/12/24 03:53
03/12/24 03:53
Laboratory Results
03/11/24 03/11/24 03/12/24
15:25 19:27 04:37
PT 15.1 H
INR 1.21
APTT 37.1 H
pH 7.53 H 7.41
pCO2 29 L 33 L
pO2 213 H 142 H
HCO3 24.2 20.9 L
O2 Delivery Level
Diagnostic Testing:
Physical Exam
-
HEENT: Normocephalic, Anicteric and Moist Mucous Membranes
Cardiovascular: S1/S2 and Regular Rhythm
Respiratory: Clear and Non-Labored Respirations
GI: Soft, Non Distended, Non Tender and Normal Bowel Sounds
Neurology: Awake and Alert
Skin: Warm and Dry
General: Comfortable
Assessment
-
Impression:
- Opioid overdose with severe EVAPORATOR HELPER depression and bradycardia
- Fever at 101F
- Acute ventilator dependent respiratory failure
- Hypotension
- Past medical history of substance abuse/dependence
Plan:
- Opioid overdose with severe EVAPORATOR HELPER depression and bradycardia: Improving
Patient has a past medical history of opioid dependence/abuse
Toxicology screen was positive for opiates, fentanyl, barbiturates, benzodiazepines, and marijuana
Patient was unable to stay awake even though he was given 2 doses of Narcan by EMS in the field and also IV Narcan upon arrival to the emergency department
Patient is quickly improved following extubation and is no longer bradycardic
Continue with supportive management and IV fluids
Monitor for signs and symptoms of withdrawal. Initiate MSAS if indicated.
Patient stated that their last alcoholic drink was over 9 years ago.
- Fever at 101F: Monitoring
Patient had an elevated WBC count at 11 on arrival at the emergency department. White blood cells currently at 12.2 on 03/12/2024
Patient currently receiving IV Zosyn
Awaiting blood and sputum cultures
Trend CBC and body temp
Chest x-ray did not show any signs of acute infection.
- Acute ventilator dependent respiratory failure: Resolved -patient currently extubated
Patient was intubated in the emergency department in order to protect his airway.
Patient was sedated on arrival to the ICU on propofol gtt.
Patient successfully passed SBT and was extubated without issue.
- Hypotension: Resolved
Continue to monitor and provide IV fluid support.
Pressors if indicated
- Past medical history of substance abuse/dependence:
Recommend outpatient counseling and therapy providing guidance against substance abuse.
-We will continue empiric antibiotic therapy and will move forward with downgrading the patient since he has successfully passed SBT and has been extubated.
DVT prophylaxis: Lovenox
Diet: Regular
CODE STATUS: Full code

Documented by User: Robi Martinez MD 03/12/24 12:45
Assessment
-
Impression:
- Opioid overdose with severe EVAPORATOR HELPER depression and bradycardia
- Fever at 101F
- Acute ventilator dependent respiratory failure
- Hypotension
- Past medical history of substance abuse/dependence
Plan:
- Opioid overdose with severe EVAPORATOR HELPER depression and bradycardia: Improving
Patient has a past medical history of opioid dependence/abuse
Toxicology screen was positive for opiates, fentanyl, barbiturates, benzodiazepines, and marijuana
Patient was unable to stay awake even though he was given 2 doses of Narcan by EMS in the field and also IV Narcan upon arrival to the emergency department
Patient is quickly improved following extubation and is no longer bradycardic
Continue with supportive management and IV fluids
Monitor for signs and symptoms of withdrawal. Initiate MSAS if indicated.
Patient stated that their last alcoholic drink was over 9 years ago.
- Fever at 101F: Monitoring
Patient had an elevated WBC count at 11 on arrival at the emergency department. White blood cells currently at 12.2 on 03/12/2024
Patient currently receiving IV Zosyn
Awaiting blood and sputum cultures
Trend CBC and body temp
Chest x-ray did not show any signs of acute infection.
- Acute ventilator dependent respiratory failure: Resolved -patient currently extubated
Patient was intubated in the emergency department in order to protect his airway.
Patient was sedated on arrival to the ICU on propofol gtt.
Patient successfully passed SBT and was extubated without issue.
- Hypotension: Resolved
Continue to monitor and provide IV fluid support.
Pressors if indicated
- Past medical history of substance abuse/dependence:
Recommend outpatient counseling and therapy providing guidance against substance abuse.
-We will continue empiric antibiotic therapy and will move forward with downgrading the patient since he has successfully passed SBT and has been extubated.
DVT prophylaxis: Lovenox
Diet: Regular
CODE STATUS: Full code
I reviewed this patients case independently and in conjunction with the resident. I personally examined the patient. Patient's complex medical history, laboratory evaluations, events over the last 24 hours, radiographs, microbiological data were
all personally reviewed.
Agree with documented assessment and plan
Critical care statement: A total of 55 minutes of critical care time was provided for this patient today. This includes management of unstable vital signs, evaluation of the patient at bedside, reviewing the patient's pertinent medical records
including radiographs, microbiology, laboratory evaluations, and discussion with primary team, consultants, pharmacy, charge nurse, critical care nursing, and respiratory therapy.
Robi Martinez MD, [facility], [facility]
Data Reviewed
-
EKG: Report reviewed by me
Radiology: Report reviewed by me
CT Scan: Report reviewed by me
Medical Tests (Nuc Med, Echo etc): Report reviewed by me
Old Records: Reviewed
Critical Care Time (in minutes): 55
[2024-03-12] MEDS: TYLENOL 650 MG PO (12:54)
[2024-03-12 12:55] LABS: Urine Albumin Negative (Neg - Trace); Urine Bilirubin Negative (Negative); Urine Character Clear (Clear); Urine Color Yellow; Urine Glucose Negative (Negative); Urine Ketone Negative (Negative); Urine Leukocyte Negative (Negative); Urine Nitrite Negative (Negative); Urine Occult Blood 1+ (Negative); Urine Specific Gravity 1.005 (<1.030); Urine Urobilinogen Negative (Neg - 1+)
[2024-03-12 13:08] LABS: Urine Red Blood Cell 16-20 /HPF (0-2)
[2024-03-12 13:53] LABS: Glucose - Point of Care 139 mg/dl (70-99)
[2024-03-12] MEDS: NSS IV (14:03)
--- NOTE | 2024-03-12 14:58 | PTCARENOTE ---
Pt. passed swallow screen, diet advanced to regular; poor appetite. IVF d/c'd per orders. Diop d/c'd per orders as well; awaiting void. Pt. stand by assisted OOB to chair @ approx 1200, tolerating chair position. Pt. remains cooperative/approp.
COWs scored as 11- Dr. Contreras made aware and further orders to start Subutex prn. Attempted to medicate w Subutex for COWS score, in which pt. refused, reporting he is afraid of going into 'precipitated withdrawal,' but is 'open to taking it
today.' Dr. Contreras made aware. Chair alarm active. Call jiménez remains w in reach.
--- NOTE | 2024-03-12 15:47 | PTCARENOTE ---
Report given to 3W RN and pt. transported via wheelchair to [phone] w belongings. No further needs from this RN.
--- NOTE | 2024-03-12 16:19 | CM ---
Patient admitted after unintentional OD at [facility]. Patient reports he lives with his mother. He said toward end of month they may have difficulty affording food but mother does not drive. Gave [employer] application and [facility] [place] [facility] [address]
Patient said he goes to 4 AA meetings. A month a go he tried inpatient drug rehab. He wants to go home and continue with his plan to setting up his outpatient program.
He is on disability (Medicare) due to 4 herniated discs that still cause him pain and dx of bipolar disorder.
Plan: home
[2024-03-12] MEDS: LOVENOX 40 MG SC (17:59)
[2024-03-12] MEDS: ZANAFLEX 2 MG PO (17:59)
[2024-03-12] MEDS: PROTONIX 40 MG PO (20:40)
[2024-03-12] MEDS: CARAFATE 1 GRAM PO (20:41)
[2024-03-12] MEDS: LIPITOR 10 MG PO (20:41)
[2024-03-12] MEDS: KEPPRA 500 MG PO (20:41)
[2024-03-12] MEDS: ESKALITH REGULAR RELEASE 600 MG PO (22:38)
--- NOTE | 2024-03-12 22:59 | PTCARENOTE ---
Pt's family visiting bedside; Pt's son approached RN in the hallway stating when pt stood up out of bed he found a small plastic baggie. Pt's son presented the baggie to RN, small plastic baggie contained what appeared to be 3 small blue papers
folded up inside with a substance inside the paper. The plastic baggie was unmarked. Nursing supercharge repair supervisor, Patricia, notified, Jonnathan mcintosh, notified both whom responded to the floor. Jonnathan from contacted police, [facility]. Pt was
informed due to findings, a search of his belongings would be necessary to which pt politely complied. Search of belongings done by security with RN and nursing supercharge repair supervisor at the bedside. During belongings search, a half of an unmarked pill was
found in the pocket of pt's wallet, a small red pill vile was found filled with what pt claims is THC/hemp, and a half burnt joint was found in pt's sweatshirt pocket. All of these items were seized to [facility] Police, officers Jaylan,
Jyaa and [place]. Additional items found include SL Suboxone, 2 intranasal Narcan spray bottles and a vial of Narcan for IV administration. These items were witnessed to be sent home with pt's mother. Pt and family updated on POC.
[2024-03-12] MEDS: LR 500 IV (23:56)
--- NOTE | 2024-03-13 00:05 | PTCARENOTE ---
Addendum entered by Saray Edge RN 03/13/24 02:38:
Repeat blood pressure s/p bolus, 113/69.
Original Note:
Pt's BP 84/58, asymptomatic, no complaints of dizziness/lightheaded, weakness or SOB. Covering LEAD GENERATION MARKETING MANAGER notified, 500mL bolus LR ordered for BP support.
[2024-03-13] MEDS: ZOSYN 50 IV ×2 (02:12→08:22)
[2024-03-13 02:32] VITALS: BP 113/69
[2024-03-13 06:17] LABS: % Basophils 0.3 % (0-2); % Immature Granulocytes 0.5 % (0-0.5); % Lymphocytes 15.6 % (20.5-51.1); % Monocytes 9.6 % (1.7-9.3); Absolute Eosinophils 0.3 10^3/uL (0-0.7); Absolute Immature Granulocytes 0.1 10^3/uL (0-0.05); Absolute Lymphocytes 1.7 10^3/uL (1.2-3.4); Absolute Neutrophils 7.5 10^3/uL (1.4-6.5); Hematocrit 27.7 % (39.0-52.0); Hemoglobin 8.8 g/dL (13.0-18.0); Mean Corp Hgb Conc. 31.8 g/dL (33.0-37.0); Mean Corpuscular Hgb 26.2 pg (27.0-31.0); Mean Corpuscular Volume 82.4 fL (80.0-94.0); Mean Platelet Volume 9.6 fL (7.4-10.4); Nucleated Red Blood Cells % 0 % (-); Platelet Count 315 10^3/uL (130-400); Red Blood Cell Count 3.36 10^6/uL (4.70-6.10); Red Cell Dist. Width 14.9 % (11.5-14.5); White Blood Cell Count 10.6 10^3/uL (4.8-10.8)
[2024-03-13 06:26] LABS: ALT (SGPT) 22 U/L (0-50); AST (SGOT) 20 U/L (17-59); Albumin 3.4 g/dl (3.5-5.0); Alkaline Phosphatase 60 U/L (38-126); Blood Urea Nitrogen 11 mg/dl (9-20); Carbon Dioxide 22 mmol/L (22-30); Chloride 110 mmol/L (98-107); Direct Bilirubin 0.2 mg/dl (0.0-0.4); Estimated Creatinine Clearance 59 ml/min; Glucose 97 mg/dl (70-99); Lithium 0.9 mmol/L (0.6-1.2); Potassium 3.5 mmol/L (3.5-5.1); Sodium 143 mmol/L (135-145); Total Bilirubin 0.8 mg/dl (0.2-1.3); Total Protein 5.6 g/dl (6.3-8.2); eGFR > 60.00
[2024-03-13 07:10] VITALS: BP 141/84
[2024-03-13] MEDS: KEPPRA 500 MG PO (08:10)
[2024-03-13] MEDS: FLOMAX 0.4 MG PO (08:11)
[2024-03-13] MEDS: KCL 40 MEQ PO (08:15)
[2024-03-13] MEDS: SEROQUEL 75 MG PO (08:15)
[2024-03-13] MEDS: PROTONIX 40 MG PO (08:18)
[2024-03-13] MEDS: CARAFATE 1 GRAM PO (08:22)
--- NOTE | 2024-03-13 10:13 | W.PN.HOSP.TC ---
Today's Communication/Plan
-
Transition to oral Augmentin
Discharge planning
Assessment / Plan
Assessment / Plan
#Fever
-Does have extensive opiate history, presumed IVDU status
-After arrival he had 2 fevers near 101 �F, no obvious source of infection
-Chest x-ray was without any signs of infection, no urinalysis on arrival
-Does have a leukocytosis with WBC near 11 to 12 x 2
-Blood cultures were taken in the ED, started on IV Zosyn empirically
-Has had no recurrence of fevers, white cell count is normal
-Blood cultures with prelim negative; sputum cultures positive though likely colonized
-Patient will transition to Augmentin to complete a 7-day course of antibiotics
#Opiate overdose with severe ME[employer] ENGINE[employer]ING OFFIC[employer] depression and bradycardia
#Acute toxic encephalopathy
-Unable to sustain wakefullness despite 3 x2 g narcan to protect Airway - Intubated at ER
-Urine drug screen showed multiple opiates including fentanyl, barbiturates, benzodiazepine
-Has quickly improved, heart rate is now WNL, he is much more awake and alert
-Continue with supportive management, IVF today
-Would benefit from drug rehab at discharge though does not seem interested at this time
#Acute VDRF
-Secondary to inability to protect airway; no acute pulmonary processes
-Resolved, liberated from vent on 03/12
#H/O bipolar disorder, BPH, HLD, GERD
-Per documented outpatient medication regimen
-Was unable to obtain med rec due to mental status and intubated status
-Will obtain his full medication records from him after he is extubated today
-Will provide outpatient psychiatry referral
DVT prophylaxis: Lovenox
Diet: N.p.o. for now, plan regular feeds when extubated
CODE STATUS: Full code
Anticipated Discharge: Today
Subjective/Interval History
-
Date of Service: March 13, 2024
Seen and examined at the bedside. No acute events overnight. AFVSS this morning.
He states he feels well, spoke to me about his home situation that leads to his drug use. Conflict between his and his mother, mother has cancer currently. I spoke with him about drug rehab but he does not seem interested. He does mention he
would like to see a psychiatrist after discharge which I will arrange
He denies any acute complaints. Has a good appetite this morning. States he feels ready to leave the hospital. I cautioned him against further drug use, with his history of repeated overdoses he is at high risk of . Encouraged him to pursue
outpatient rehab options for his addiction
Objective Data
-
Labs:
Laboratory Results
03/13/24
05:43
WBC 10.6
Hgb 8.8 L
Hct 27.7 L
Plt Count 315
Sodium 143
Potassium 3.5
Chloride 110 H
Carbon Dioxide 22
BUN 11
Creatinine 1.1
Glucose 97
Calcium 9.0
Total Bilirubin 0.8
AST 20
ALT 22
Alkaline Phosphatase 60
Vital Signs:
Vital Signs
Temp Pulse Resp BP Pulse Ox
98.8 F 90 18 141/84 100
03/13/24 07:10 03/13/24 07:10 03/13/24 07:10 03/13/24 07:10 03/13/24 07:10
I&O
03/12/24 03/13/24 03/14/24
06:59 06:59 06:59
Intake Total 1632.6 / 1761.9 2359.3 / 2359.3
Output Total 2430 / 2530 600 / 600
Balance -797.4 / -768.1 1759.3 / 1759.3
Review of Systems
-
History Source: Patient
All other systems: Reviewed and negative
Physical Exam
-
General: Well Nourished, No Apparent Distress and Comfortable
HEENT: Normocephalic, Atraumatic and Moist Mucous Membranes
Respiratory: Clear to Auscultation and Non Labored Respirations; Negative Wheezes, Rales or Rhonchi
Cardiac: Regular Rhythm and S1/S2; Negative Murmur, Rub or Gallop
GI: Soft, Nontender, Nondistended and Normal Bowel Sounds
Musculoskeletal: No Clubbing, No Cyanosis and No Edema
Skin: Warm, Dry and Other (Numerous tattoos throughout extremities and torso, head and neck ); Negative Rash or Jaundice
Neuro: AO x 3, Nonfocal/Grossly Intact and Central Nerve's Intact; Negative Tremors
Data Reviewed
-
Labs: Labs Reviewed by me and Discussed with Patient
--- NOTE | 2024-03-13 10:25 | W.DCSUMMARY ---
Discharge Summary
Discharge Data
Date of Admission: 03/11/24
Date of Discharge: 03/13/24
-
Pending Results: No
Hospital Course
49-year-old male with BPH, GERD, bipolar disorder, HLD that presented to the hospital after being found unresponsive in the field. Was slightly arousable initially and stated he was using opioids. Became more lethargic and had issues protecting
his airway, was intubated upon arrival for VDRF. He quickly improved and on the morning of hospital day 2 he was liberated from mechanical ventilation. Had no further issues with protecting airway or signs of respiratory compromise. No further
signs of bradycardia following stabilization. UDS was positive for multiple opioid substances including fentanyl, benzodiazepines, barbiturates, as well as cocaine and marijuana.
While intubated he did spike fevers near 101 �F, had leukocytosis. Blood cultures with prelim negative finding, sputum cultures showing gram-positive colonization's. Leukocytosis resolved and no further fevers after extubation. He had chest x-ray
that showed no evidence of infiltrations or consolidation. Was treated with IV Zosyn while in the hospital, transition to Augmentin to complete 7-day course at discharge empirically.
Cautioned him against further substance abuse, offered him resources for rehab though he did not seem interested. At discharge I provided him with a new prescription for Narcan. Encouraged him to avoid opioid substances due to risk of further
overdoses and eventual .
He did ask for a psychiatry referral upon discharge, I provided him with a psychiatrist office near his home.
Discharge Plan
-
Patient Disposition: Home (Routine Discharge)
Discharge Diagnosis/Procedures: Opioid overdose
Ventilator dependent respiratory failure
Opioid-induced bradycardia
Condition: Fair
Diet: No restrictions
Activity: As tolerated
Driving Restrictions: No driving for 24 hours
Bathing Restrictions: None
Blood Work: None
Others Tests: None
Activity Restrictions/Additional Instructions:
He should schedule follow-up appointment with your primary care doctor within 7 days of discharge from the hospital. If you do not have a family doctor, a referral has been provided for near the [facility].
Psychiatry referral has also been provided below. Please call office to schedule appointment with psychiatrist after being discharged
Instructions: Opioid Overdose, Opioid use disorder
Referrals:
Leonides Watkins, DO [Non-Admitting Privileges] - in less than 1 week (Family doctor)
YOU SILVEIRA, CERTIFIED HOME HEALTH AIDE [Non-Admitting Privileges] - in less than 1 week
UNKNOWN - PT DOES,NOT KNOW [Family Provider] -
Additional Discharge Medication Instructions: Take Augmentin 875-125 mg twice daily for 5 more days after
Chart take naloxone as needed for overdose
Continue all other home medications as previously prescribed
Prescriptions:
New
amoxicillin-pot clavulanate 875-125 mg tablet
1 tab PO Q12H 5 Days Qty: 10 0RF
naloxone [Narcan] 4 mg/actuation spray,non-aerosol
4 mg intranasal Q3M PRN (Reason: opioid overdose) 30 Days Qty: 2 0RF
Continued
quetiapine [Seroquel] 25 mg Tablet
75 mg PO DAILY
atorvastatin [Lipitor] 10 mg Tablet
10 mg PO QPM
levetiracetam [Keppra] 500 mg Tablet
500 mg PO BID
sucralfate [Carafate] 1 gram Tablet
1 g PO ACHS
quetiapine [Seroquel] 200 mg Tablet
200 mg PO HS
tamsulosin [Flomax] 0.4 mg Capsule
0.4 mg PO DAILY
esomeprazole magnesium [Nexium] 40 mg Capsule,Delayed Release(Dr/Ec)
40 mg PO BID
lithium carbonate 300 mg Tablet Extended Release
300 mg PO DAILY
lithium carbonate 600 mg Capsule
600 mg PO HS
Discharge Orders:
Discharge Patient (As Directed); Ordered 03/13/24
Ordered By: Bandar Contreras
Discharge Date and Time
Print Language: UKRAINIAN
[2024-03-13 11:02] VITALS: BP 136/74
--- NOTE | 2024-03-13 11:31 | CM ---
Patient seen at bedside, completed IMM form and signed form placed on chart. Patient stated that he has septa fare to go from [place] to [place] but does not have money to get to train station. Patient has no available friends to support for
transportation. Patient willing to talk to [facility] and CM spoke with liaison who is going to have someone run up to see patient. Patient for discharge home today. CM will continue to follow for discharge planning needs.
Plan; home with [facility] to follow up; Lyft ride to train station if needed.
[2024-03-13 18:14] LABS: Keppra (Levetiracetam) <2 ug/mL (10-40)
== END 2024-03-13 13:12 | disposition home or self-care (01) | DRG 917 ==
LOC: 3 WEST ACU 16:27
PROVIDERS: Internal Medicine Critical Care Medicine; Nurse Practitioner Family; ADMITTING PHYSICIAN Internal Medicine; ATTENDING PHYSICIAN Internal Medicine; EMERGENCY PHYSICIAN Emergency Medicine; OTHER PHYSICIAN Internal Medicine Critical Care Medicine
PROC: 5A1935Z Respiratory Ventilation, Less than 24 Consecutive Hours (ICD-10-PCS; 2024-03-11)
DX: T40.2X1A Poisoning by other opioids, accidental (unintentional), initial encounter (principal); G92.8 Other toxic encephalopathy; J69.0 Pneumonitis due to inhalation of food and vomit; J96.00 Acute respiratory failure, unspecified whether with hypoxia or hypercapnia; E87.20 Acidosis, unspecified; F11.20 Opioid dependence, uncomplicated; F31.9 Bipolar disorder, unspecified; I10 Essential (primary) hypertension; D64.9 Anemia, unspecified; I95.2 Hypotension due to drugs; G98.8 Other disorders of nervous system; E78.00 Pure hypercholesterolemia, unspecified; K21.9 Gastro-esophageal reflux disease without esophagitis; N40.0 Benign prostatic hyperplasia without lower urinary tract symptoms; R00.1 Bradycardia, unspecified; R73.9 Hyperglycemia, unspecified; Z79.899 Other long term (current) drug therapy
CPT/HCPCS: 31500; 36600; 51701; 70450; 71045; 80048; 80053; 80143; 80177; 80178; 80179; 80306; 80307; 81003; 81015; 82077; 82248; 82550; 82805; 82962; 83036; 83605; 83735; 84100; 84478; 85025; 85027; 85610; 85730; 87040; 87070; 87077; 87147; 87186; 87205; 93005; 94002; 94003; 96374; 96375; 99291

== ENCOUNTER 2024-08-17 15:23 | Emergency (ER) | payer MEDICARE, SELFPAY ==
[2024-08-17] VITALS (12 sets, daily range): BP systolic 113–194; BP diastolic 72–130; BMI 23.8
--- NOTE | 2024-08-17 15:40 | ED.GENMED ---
History of Present Illness
<Yong Anthony MD - Last Filed: 08/17/24 18:07>
General
Chief Complaint: Overdose Unintentional
Source: patient and ambulance crew
Exam Limitations: none
Time Seen by Provider: 08/17/24 15:34
Nursing documentation reviewed up to this point in time: agreed with
History of Present Illness
History of Present Illness:
49-year-old male with documented history of BPH, GERD, bipolar disorder, hyperlipidemia presents via EMS for evaluation after unintentional opioid overdose. Per EMS report they received a call for unresponsive patient at [facility].
On arrival he was found unresponsive with pinpoint pupils and he was given 2 mg of intramuscular Narcan. Shortly thereafter he began to respond to verbal stimulus and was brought to the emergency room. He says that he feels tired but otherwise
denies complaints. He admits to using heroin he says he snorts does not inject. He denies any other drug use but according to EMS report police on the scene also found multiple other drugs on his person which were confiscated. Per EMS he did have
some bradycardia en route to the emergency room. I did review chart it looks like he was here in February with similar issue unfortunately at that time had respiratory failure and required intubation.
Past History
<Yong Anthony MD - Last Filed: 08/17/24 18:07>
Social History
Drug: Narcotics
Review of Systems
<Yong Anthony MD - Last Filed: 08/17/24 18:07>
Review of Systems
All Other Systems: ROS reviewed and negative except as documented in HPI and ROS
Constitutional: Reports fatigue
Respiratory: Denies trouble breathing
Cardiac: Denies chest pain
ABD/GI: Denies abdominal pain or nausea
Neurological: Denies headache
Phy Exam
<Yong Anthony MD - Last Filed: 08/17/24 18:07>
Physical Exam
Physical Exam:
General: Laying in bed initially lethargic but wakes easily to voice; not in acute distress
Head: Normocephalic, atraumatic
Eyes: Conjunctiva normal, pupils 3-4 mm and reactive to light bilaterally
Throat: Airway intact, mucous membranes slightly dry
Neck: Trachea midline, supple without meningismus, no tenderness in the cervical spine
Lungs: Clear to auscultation bilaterally, no wheezing, rales, rhonchi
Heart: Regular rate and rhythm, no murmurs, gallops, or rubs
Abd: Soft, non distended, nontender
Neuro: No gross deficit
Extremities: Atraumatic
Scores
<Yong Anthony MD - Last Filed: 08/17/24 18:07>
Heart Failure Risk
Heart Failure Risk Score: Not Applicable
Heart Score for Chest Pain Patients
STEMI patient?: Not applicable
Withdrawal Assessment of Alcohol
Withdrawal Assessment Completed?: Not applicable
Course
<Yong Anthony MD - Last Filed: 08/17/24 18:07>
Orders/Labs/Results
Orders:
Orders
08/17/24 15:36
Electrocardiogram (*1) Urgent
Reason for Study: Bradycardia / Tachycardia
EKG- Treatment ONCE
Drug Screen, Urine [Urine Drug Abuse Screen] Urgent
Urinalysis Reflex To Culture Urgent
08/17/24 15:40
0.9% Sodium Chloride 1000 ml [Nss] 1,000 ml IV BOLUS
08/17/24 15:51
Acetaminophen Urgent
Alcohol Urgent
CPK [Creatine Phosphokinase] Urgent
Complete Blood Count/With Diff Urgent
Comprehensive Metabolic Panel Urgent
TSH Reflex To Free T4 Urgent
08/17/24 17:06
Add On- LAB Urgent
Tests Added?: TSH
Abnormal Lab Results
08/17/24
15:51
WBC 11.2 H 10^3/uL
(4.8-10.8)
RBC 4.02 L 10^6/uL
(4.70-6.10)
Hgb 10.7 L g/dL
(13.0-18.0)
Hct 36.4 L %
(39.0-52.0)
MCH 26.6 L pg
(27.0-31.0)
MCHC 29.4 L g/dL
(33.0-37.0)
RDW 15.0 H %
(11.5-14.5)
Absolute Monos (auto) 0.9 H 10^3/uL
(0.1-0.6)
Potassium 5.2 H mmol/L
(3.5-5.1)
Glucose 110 H mg/dl
(70-99)
Creatine Kinase 195 H U/L
(55-170)
Acetaminophen < 10 L ug/ml
(10-30)
08/17/24 15:51
08/17/24 15:51
Vital Signs
Initial and Last Documented VS:
Initial Vital Signs
Temp Pulse Resp Pulse Ox
97.2 F 38 17 100
08/17/24 15:27 08/17/24 15:27 08/17/24 15:27 08/17/24 15:27
Last Documented Vital Signs
Temp Pulse Resp BP Pulse Ox
97.2 F 68 25 134/92 97
08/17/24 15:27 08/17/24 21:30 08/17/24 21:30 08/17/24 21:00 08/17/24 21:00
<Adilene Diop MD - Last Filed: 08/17/24 22:36>
Orders/Labs/Results
Orders:
Orders
08/17/24 15:36
Electrocardiogram (*1) Urgent
Reason for Study: Bradycardia / Tachycardia
EKG- Treatment ONCE
Drug Screen, Urine [Urine Drug Abuse Screen] Urgent
Urinalysis Reflex To Culture Urgent
08/17/24 15:40
0.9% Sodium Chloride 1000 ml [Nss] 1,000 ml IV BOLUS
08/17/24 15:51
Acetaminophen Urgent
Alcohol Urgent
CPK [Creatine Phosphokinase] Urgent
Complete Blood Count/With Diff Urgent
Comprehensive Metabolic Panel Urgent
TSH Reflex To Free T4 Urgent
08/17/24 17:06
Add On- LAB Urgent
Tests Added?: TSH
Abnormal Lab Results
08/17/24
15:51
WBC 11.2 H 10^3/uL
(4.8-10.8)
RBC 4.02 L 10^6/uL
(4.70-6.10)
Hgb 10.7 L g/dL
(13.0-18.0)
Hct 36.4 L %
(39.0-52.0)
MCH 26.6 L pg
(27.0-31.0)
MCHC 29.4 L g/dL
(33.0-37.0)
RDW 15.0 H %
(11.5-14.5)
Absolute Monos (auto) 0.9 H 10^3/uL
(0.1-0.6)
Potassium 5.2 H mmol/L
(3.5-5.1)
Glucose 110 H mg/dl
(70-99)
Creatine Kinase 195 H U/L
(55-170)
Acetaminophen < 10 L ug/ml
(10-30)
08/17/24 15:51
08/17/24 15:51
Vital Signs
Initial and Last Documented VS:
Initial Vital Signs
Temp Pulse Resp Pulse Ox
97.2 F 38 17 100
08/17/24 15:27 08/17/24 15:27 08/17/24 15:27 08/17/24 15:27
Last Documented Vital Signs
Temp Pulse Resp BP Pulse Ox
97.2 F 68 25 134/92 97
08/17/24 15:27 08/17/24 21:30 08/17/24 21:30 08/17/24 21:00 08/17/24 21:00
<Yong Anthony MD - Last Filed: 08/17/24 18:07>
MDM/Problems Addressed
Differential Diagnosis Includes:
Drug overdose
MDM/Problems Addressed:
49-year-old male presents for evaluation after unintentional opioid overdose�patient admits to using heroin and was [place]. He was given 2 mg of Narcan with good response. He is slightly lethargic year but greatly
improved wakes easily to voice. Normal respiratory rate and normal pulse ox. He did have some bradycardia for EMS and apparently on initial triage but heart rate in the 60s to 70s on my assessment. No signs of trauma on exam and he denies any
trauma or complaints. He says that he just wants to sleep. Will check an EKG and monitor on telemetry and continuous pulse oximetry. Will send basic labs, alcohol, UDS. Provide some fluids. Reassess after the above.
Labs reviewed, no clinically significant abnormalities. CPK not markedly elevated. His vitals have been stable heart rate has been in the 60s since initial bradycardia from EMS. His EKG showed sinus rhythm. Clinical reassessment he is lethargic
but arousable. Respiratory rate and pulse ox are normal. Continue to monitor.
Chronic conditions affecting care:
Drug use
<Yong Anthony MD - Last Filed: 08/17/24 18:07>
*Pulse Oximetry
Patient hypoxic: no
*EKG
Interpreted by ED Provider?: Yes
Heart Rate: 60
Rate: normal
Rhythm: sinus
[place]: normal axis
Interval: normal interval
QRS Pattern: normal QRS
Ischemia: no ischemia
*Critical Care Note
Total Time (30-74mins, 75-104mins- exclusive of procedures): Not Applicable
Data Reviewed
Source: patient and ambulance crew
<Adilene Diop MD - Last Filed: 08/17/24 22:36>
Update Note
Update Note:
1036 AM pT AWAKE, ALERT, NO SI/HI. He declines bcares. wants to leave now to go home. Does not appear a danger to himself or others. Lucid.
ED Attending Note
<Yong Anthony MD - Last Filed: 08/17/24 18:07>
-
Portions of this chart may have been created with voice recognition software.� Occasional wrong word or��sound alike� substitutions may have occurred due to the inherent limitations of voice recognition software.
Discharge Plan
Departure
Patient Disposition: Home (Routine Discharge)
Patient with high blood pressure during this ER visit?: Yes
Condition: Good
Discharge Problem:
Overdose
Instructions: Accidental Overdose (DC), BLOOD PRESSURE, Drug and Alcohol Abuse Information
Prescriptions:
No Action
atorvastatin [Lipitor] 10 mg Tablet
10 mg PO QPM
sucralfate [Carafate] 1 gram Tablet
1 g PO ACHS
quetiapine [Seroquel] 200 mg Tablet
200 mg PO HS
tamsulosin [Flomax] 0.4 mg Capsule
0.4 mg PO DAILY
esomeprazole magnesium [Nexium] 40 mg Capsule,Delayed Release(Dr/Ec)
40 mg PO BID
lithium carbonate 600 mg Capsule
600 mg PO HS
amoxicillin-pot clavulanate 875-125 mg tablet
1 tab PO Q12H 5 Days Qty: 10 0RF
naloxone [Narcan] 4 mg/actuation spray,non-aerosol
4 mg intranasal Q3M PRN (Reason: opioid overdose) 30 Days Qty: 2 0RF
Referrals:
Thor Lentz, DO [Family Provider] -
Activity Restrictions/Additional Instructions:
PLEASE AVOID ANY DRUG OR ALCOHOL USE. IF YOU DEVELOP CHEST PAIN, TROUBLE BREATHING, FEVER, VOMITING, OR OTHER WORRISOME SIGNS, GO TO THE ER IMMEDIATELY!
Interventions
Interventions:
*Risk Screen - Suicide Last Done: 08/17/24 15:31
*General Assessment Last Done: 08/17/24 15:31
*Neglect/Abuse Screening Last Done: 08/17/24 15:31
ED- Fall Risk Assessment Last Done: 08/17/24 15:31
*ED COVID-19 Vaccine History Last Done: 08/17/24 15:31
ED- Cardiac Assessment Last Done: 08/17/24 15:31
ED- Neurological Assessment Last Done: 08/17/24 15:31
ED-Psychological Assessment Last Done: 08/17/24 15:56
ED- Pulmonary Assessment Last Done: 08/17/24 15:31
Discharge Date and Time
Print Language: TANZANIAN
[2024-08-17] MEDS: NSS 1000 IV (15:56)
[2024-08-17 16:00] LABS: % Basophils 0.4 % (0-2); % Immature Granulocytes 0.2 % (0-0.5); % Lymphocytes 29.6 % (20.5-51.1); % Monocytes 8.4 % (1.7-9.3); % Neutrophils 55.4 % (42.2-75.2); Absolute Basophils 0.1 10^3/uL (0-0.2); Absolute Eosinophils 0.7 10^3/uL (0-0.7); Absolute Lymphocytes 3.3 10^3/uL (1.2-3.4); Absolute Monocytes 0.9 10^3/uL (0.1-0.6); Absolute Neutrophils 6.2 10^3/uL (1.4-6.5); Hematocrit 36.4 % (39.0-52.0); Hemoglobin 10.7 g/dL (13.0-18.0); Mean Corp Hgb Conc. 29.4 g/dL (33.0-37.0); Mean Corpuscular Hgb 26.6 pg (27.0-31.0); Mean Corpuscular Volume 90.5 fL (80.0-94.0); Mean Platelet Volume 9.5 fL (7.4-10.4); Nucleated Red Blood Cells % 0 % (-); Platelet Count 378 10^3/uL (130-400); Red Blood Cell Count 4.02 10^6/uL (4.70-6.10); White Blood Cell Count 11.2 10^3/uL (4.8-10.8)
[2024-08-17 16:15] LABS: ALT (SGPT) 15 U/L (0-50); AST (SGOT) 32 U/L (17-59); Acetaminophen < 10 ug/ml (10-30); Albumin 4.3 g/dl (3.5-5.0); Alkaline Phosphatase 52 U/L (38-126); Blood Urea Nitrogen 14 mg/dl (9-20); Calcium 9.4 mg/dl (8.4-10.2); Carbon Dioxide 29 mmol/L (22-30); Chloride 106 mmol/L (98-107); Creatine Phosphokinase 195 U/L (55-170); Estimated Creatinine Clearance 67 ml/min; Glucose 110 mg/dl (70-99); Potassium 5.2 mmol/L (3.5-5.1); Sodium 138 mmol/L (135-145); Total Bilirubin 0.4 mg/dl (0.2-1.3); Total Protein 7.1 g/dl (6.3-8.2); eGFR > 60.00
[2024-08-17 16:17] LABS: Alcohol None Detected
[2024-08-17 18:23] LABS: TSH Reflex To Free T4 3.58 uIU/ml (0.47-4.68)
== END 2024-08-17 22:40 | disposition home or self-care (01) ==
LOC: EMR 15:23
PROVIDERS: EMERGENCY PHYSICIAN Emergency Medicine; FAMILY PHYSICIAN Family Medicine
DX: T40.2X1A Poisoning by other opioids, accidental (unintentional), initial encounter (principal); R03.0 Elevated blood-pressure reading, without diagnosis of hypertension; N40.0 Benign prostatic hyperplasia without lower urinary tract symptoms; K21.9 Gastro-esophageal reflux disease without esophagitis; F31.9 Bipolar disorder, unspecified; E78.5 Hyperlipidemia, unspecified
CPT/HCPCS: 99284; 96360; 80053; 80143; 82077; 82550; 84443; 85025; 93005